=== PATIENT | female | born 1970 | race Caucasian/White ===

== ENCOUNTER → 2018-05-29 | Outpatient (CLI) | payer OTHER | END | disposition home or self-care (01) | LOC: KCIC 15:39 | DX: K21.9 Gastro-esophageal reflux disease without esophagitis (principal); J45.909 Unspecified asthma, uncomplicated; G43.909 Migraine, unspecified, not intractable, without status migrainosus; R06.00 Dyspnea, unspecified; R53.83 Other fatigue; R07.89 Other chest pain | CPT/HCPCS: 71046 ==

== ENCOUNTER → 2018-06-23 | Outpatient (CLI) | payer OTHER ==
[2015-05-14 07:00] VITALS: BP 112/62
[~2018-06-23] MED LIST: ADAL40PE SQ; ALBU8.5H6 INH; BARIUM SULFATE 340 GM SUSPENSION. PO ONE; BARIUM SULFATE 60% 355 ML SUSP PO ONE; CYCL10TA2 PO; DEXL60CA2 PO; FEXO180T81 PO; FLUT1DIS3 INH; FOLI1TAB16 PO; LEVO750T31 PO; METH25VI27 SQ; MONT10TA6 PO; NAPR-683 PO; PRED20TA PO; SIMETHICONE/SOD BICARB/CITRIC ACID PACKET. PO ONE
--- NOTE | 2018-06-23 09:13 | RAD ---
Double contrast upper GI, 06/23/2018: HISTORY: Intermittent nausea and GERD The preliminary abdominal image demonstrates a nonspecific gas pattern. There is no evidence of organomegaly. The study was performed utilizing high density barium and gas forming crystals followed by regular liquid barium. 3.9 minutes of fluoroscopy time was utilized. 17 static and dynamic fluoroscopic images were recorded. The swallowing mechanism is intact. The esophageal peristalsis is normal. A small hiatal hernia is noted. No gastroesophageal reflux was demonstrated. The patient became nauseous and vomited during the exam. No gastric mass or ulceration is seen. The duodenal bulb is unremarkable. There are at least 4 duodenal diverticula. The largest of these arises medially from the second portion of the duodenum and measures approximately 3 cm in diameter. IMPRESSION: 1. Small hiatal hernia. 2. Multiple duodenal diverticula. Electronically signed by: Rodney Balbuena MD (06/23/2018 9:10 AM) [facility]
== END | disposition home or self-care (01) ==
LOC: RAD 08:11
PROVIDERS: ATTEND Surgery
DX: K44.9 Diaphragmatic hernia without obstruction or gangrene (principal); K57.10 Diverticulosis of small intestine without perforation or abscess without bleeding; K21.9 Gastro-esophageal reflux disease without esophagitis; J45.909 Unspecified asthma, uncomplicated; G43.909 Migraine, unspecified, not intractable, without status migrainosus; Z90.710 Acquired absence of both cervix and uterus
CPT/HCPCS: 74241

== ENCOUNTER 2018-12-15 16:34 | Emergency (ER) | payer OTHER ==
[~2018-12-15] VITALS: Ht 167.6 cm; Wt 90.7 kg
[~2018-12-15 16:34] MED LIST changes: +AZAT50TA PO; -BARIUM SULFATE 340 GM SUSPENSION. PO ONE; -BARIUM SULFATE 60% 355 ML SUSP PO ONE; +CHOL2000 PO; -SIMETHICONE/SOD BICARB/CITRIC ACID PACKET. PO ONE
[2018-12-15 16:59] VITALS: BP 135/89
--- NOTE | 2018-12-15 17:54 | PHYS DOC ---
Past Medical History Past Medical History: Asthma, Migraines Additional Past Medical Histor: RA,DIO RODGER SYNDROME Past Surgical History: , Hysterectomy, Knee Replacement Additional Past Surgical Histo: CARPEL TUNNEL BILAT WRISTS,X 5 LUMPH NODES REMOVED FROM NECK BENIGN Alcohol Use: None Drug Use: None Adult General Chief Complaint Chief Complaint: LOWEREXTREMITY INJURY HPI HPI 48-year-old female presenting to the emergency department today with left leg pain after falling and injuring it. The pain is sharp shooting pain that radiates into the ankle. She denies any other injuries. She reports mild amount of tingling in the foot but denies any weakness of the foot. Review of systems is negative for chest pain shortness of breath abdominal pain knee pain or hip pain. All other review of systems is negative unless otherwise noted in history of present illness. ED course: 48 yo female presenting with leg injury after fall. X-rays ordered and obtained. We will give the patient ice and elevate the injury for pain control. She took Motrin prior to arrival. The time is now 5:51 PM the patient had taken NSAIDs for her pain which I felt was appropriate. She wanted something "stronger". Unfortunately I do not feel comfortable prescribing opioid medications for this injury at this time. Her allergy list limits the medications I can use. I offered her ice with elevation which she declined. X-rays had been taken which I reviewed and they do not show any acute fracture dislocation there is obvious to me however I was waiting for the radiologist to finish his report when the patient decided to leave AMA. I informed the patient of their right to a medical screening exam and any treatment and/or stabilization that may be necessary regardless of their ability to pay. The patient appears to have intact insight, judgment, and reason. In my opinion, this patient has the capacity to make decisions. The patient presented with ankle pain. I explained the risk of and disability to the patient in plain language which they were able to demonstrate in their own words verbal understanding. The pt has verbalized understanding of my concerns. I recommended the pt follow up with pcp tomorrow. I explained that at any time if the patient changed their mind, we are always open and would be happy to have them back. The patient refused further care and then left against medical advice. Review of Systems Review of Systems SEE ABOVE. Allergies Allergies Allergies Coded Allergies Type Severity Reaction Last Updated Verified Penicillins Allergy Severe dio rodger syndrome 07/07/18 Yes clarithromycin Allergy Severe larkin rodger syndrome 07/07/18 Yes codeine Allergy Severe larkin rodger syndrome 07/07/18 Yes gentamicin Allergy Severe larkin johnsons syndrome 07/07/18 Yes hydrocodone Allergy Severe larkin johnsons syndrome 07/07/18 Yes rituximab Allergy Severe SEVERE ANAPHYLAXIS SHOCK 07/06/18 Yes Iodinated Contrast- Oral and IV Dye Allergy Intermediate HIVES,SICK OF STOMACH 07/06/18 Yes certolizumab pegol Allergy Intermediate 07/08/18 Yes acetaminophen Adverse Reaction Intermediate Nausea 07/07/18 Yes Physical Exam Physical Exam SEE ABOVE Constitutional: Well developed, well nourished, no acute distress, non-toxic appearance. HENT: Normocephalic, atraumatic, bilateral external ears normal, oropharynx moist, no oral exudates, nose normal. [] Eyes: PERRLA, EOMI, conjunctiva normal, no discharge. Neck: Normal range of motion, no tenderness, supple, no stridor. [] Cardiovascular:Heart rate regular rhythm, no murmur Lungs & Thorax: Bilateral breath sounds clear to auscultation [] Abdomen: Bowel sounds normal, soft, no tenderness, no masses, no pulsatile masses. [] Skin: Warm, dry, no erythema, no rash. Back: No tenderness, no CVA tenderness. [] Extremities: Patient has pain in the gastelum region with mild ecchymosis. Department for soft. Palpable pulse distally with 2 second cap refill. Patient is able to wiggle toes without difficulty. knee exam is unremarkable. Nontender with normal range of motion. Ankle exam is unremarkable nontender with normal range of motion. Neurologic: Alert and oriented X 3, normal motor function, normal sensory function, no focal deficits noted. Psychologic: Affect normal, judgement normal, mood normal. [] Current Patient Data Vital Signs Vital Signs Date Time Temp Pulse Resp B/P (MAP) Pulse Ox O2 Delivery O2 Flow Rate FiO2 12/15/18 16:59 98.6 88 18 135/89 (104) 98 Room Air 98.6 EKG EKG [] Radiology/Procedures Radiology/Procedures [] Course & Med Decision Making Course & Med Decision Making Pertinent Labs and Imaging studies reviewed. (See chart for details) [] Dragon Disclaimer Dragon Disclaimer This electronic medical record was generated, in whole or in part, using a voice recognition dictation system. Departure Departure Impression: Primary Impression: Left leg pain Additional Impression: Drug-seeking behavior Condition: STABLE Referrals: COURTNEY BENSON MD (PCP) Problem Qualifiers EDMOND TOWNSEND MD Dec 15, 2018 17:54
--- NOTE | 2018-12-15 22:58 | RAD ---
AP and lateral radiographs of the left tibia and fibula 2 include 3 view radiographs of the left ankle 12/15/2018 CLINICAL HISTORY: Patient fell earlier today with injury to the left lower leg and left ankle. AP and lateral digital radiographs of the left tibia and fibula were obtained. AP, two lateral and anoblique digital radiographs of the left ankle were obtained. No fracture or dislocation of the left tibia or fibula is seen. The left ankle mortise is intact. No fracture or dislocation of the left ankle is seen. Moderate enthesophyte formation is seen involving the posterior left calcaneus. A bone screw is seen within the distal left first metatarsal. IMPRESSION: No fracture or dislocation is seen. Electronically signed by: Cayetano De La Garza MD (12/15/2018 10:55 PM) [facility]
== END 2018-12-15 17:56 | disposition left against medical advice (07) ==
LOC: ER 17:31
DX: S80.12XA Contusion of left lower leg, initial encounter (principal); Z76.5 Malingerer [conscious simulation]; J45.909 Unspecified asthma, uncomplicated; G43.909 Migraine, unspecified, not intractable, without status migrainosus; Z88.0 Allergy status to penicillin; Z88.1 Allergy status to other antibiotic agents; Z88.5 Allergy status to narcotic agent; Z88.6 Allergy status to analgesic agent; Z91.041 Radiographic dye allergy status; W18.39XA Other fall on same level, initial encounter; Y93.89 Activity, other specified; Y92.89 Other specified places as the place of occurrence of the external cause; Y99.8 Other external cause status
CPT/HCPCS: 73590; 73610; 99283

== ENCOUNTER → 2020-07-04 | Outpatient (CLI) | payer OTHER ==
[~2020-07-04] MED LIST changes: +MONT10TA49 PO; -MONT10TA6 PO
--- NOTE | 2020-07-04 14:44 | KCIC ---
CHEST PA LATERAL INDICATION: SHORTNESS OF BREATH. Asthmatic with shortness of breath, does infusions for RA. COMPARISON STUDY: None. FINDINGS: Lungs: Normal lung volume. No pulmonary mass or consolidation. The tracheobronchial tree and hilar structures are normal. Pleura: No pleural effusion or pneumothorax. Heart and Mediastinum: The cardiomediastinal silhouette is normal. The great vessels of the thorax are normal. Bones and Soft Tissues: Degenerative changes of the spine. IMPRESSION: No acute cardiopulmonary process. Electronically signed by: Cesar Byrd MD (07/04/2020 2:41 PM) [id number]
== END | disposition home or self-care (01) ==
LOC: KCIC 11:31
PROVIDERS: ATTEND Internal Medicine Rheumatology
DX: R06.02 Shortness of breath (principal)
CPT/HCPCS: 71046

== ENCOUNTER → 2022-01-22 | Outpatient (CLI) | payer OTHER ==
[~2022-01-22] MED LIST changes: +CYCL10TA19 PO; -CYCL10TA2 PO
--- NOTE | 2022-01-22 17:30 | KCIC ---
INDICATION: Reason: ASTHMA / Spl. Instructions: Asthmatic with COVID last May. Wheezing at night, SOA . / History: COMPARISON: July 04, 2020 FINDINGS: 2 view of chest obtained. Cardiac mediastinal silhouette is similar to prior examination. No definite focal airspace consolidation. Appearance the lungs is similar to prior without a definite new region of consolidation. IMPRESSION: * No focal airspace consolidation or edema. Electronically signed by: Chava Sandoval MD (01/22/2022 5:28 PM) [id number]
== END ==
LOC: KCIC 15:24
PROVIDERS: ATTEND Internal Medicine Pulmonary Disease
DX: J45.909 Unspecified asthma, uncomplicated (principal)
CPT/HCPCS: 71046